=== PATIENT | male | born 1945 | race Caucasian/White ===

== ENCOUNTER → 2017-01-31 | Outpatient (CLI) | payer OTHER ==
[~2017-01-31] MED LIST: GADOBUTROL 10 ML VIAL IVP ONE
== END ==
LOC: FIMAGING 19:07
PROVIDERS: ATTEND Internal Medicine Hematology & Oncology
DX: C90.00 Multiple myeloma not having achieved remission (principal)
CPT/HCPCS: A9585

== ENCOUNTER → 2017-07-17 | Outpatient (CLI) | payer OTHER ==
[~2017-07-17] MED LIST changes: -GADOBUTROL 10 ML VIAL IVP ONE; +IOPAMIDOL (ISOVUE 370) 100 ML BTL IV ONE
== END ==
LOC: CIMAGING 14:48
PROVIDERS: ATTEND Nurse Practitioner
DX: R06.02 Shortness of breath (principal); I71.2 Thoracic aortic aneurysm, without rupture
CPT/HCPCS: 71275-PO; Q9967

== ENCOUNTER → 2017-08-03 | Outpatient (CLI) | payer OTHER | LOC: CIMAGING 10:22 | PROVIDERS: ATTEND Internal Medicine Hematology & Oncology | DX: R06.00 Dyspnea, unspecified (principal); C90.00 Multiple myeloma not having achieved remission | CPT/HCPCS: 71275-PO; Q9967 ==

== ENCOUNTER → 2017-08-09 | Outpatient (CLI) | payer OTHER | LOC: CIMAGING 07:15 | PROVIDERS: ATTEND Internal Medicine Hematology & Oncology | DX: C79.51 Secondary malignant neoplasm of bone (principal); M19.012 Primary osteoarthritis, left shoulder; C90.00 Multiple myeloma not having achieved remission | CPT/HCPCS: 73030-PO ==

== ENCOUNTER → 2018-07-27 | Outpatient (CLI) | payer OTHER | LOC: FLAB 11:32 | PROVIDERS: ATTEND Internal Medicine Hematology & Oncology | DX: J44.9 Chronic obstructive pulmonary disease, unspecified (principal); R53.83 Other fatigue ==